=== PATIENT | male | born 1960 | race Caucasian/White ===

== ENCOUNTER → 2022-03-01 10:01 | Outpatient (BNVA) | payer MEDICARE, SELFPAY | PROVIDERS: PCP Family Medicine; Visit Provider Internal Medicine Pulmonary Disease | DX: R91.1 Solitary pulmonary nodule (principal); Z87.891 Personal history of nicotine dependence; Z86.718 Personal history of other venous thrombosis and embolism; Z86.711 Personal history of pulmonary embolism; Z79.01 Long term (current) use of anticoagulants | CPT/HCPCS: 99204 ==

== ENCOUNTER 2022-06-27 09:08 | Outpatient (CLI) | payer MEDICARE, MEDICAID, SELFPAY ==
--- NOTE | 2022-06-27 09:30 | CT_ITS ---
WS: [id number] CT CHEST TECHNIQUE: Noncontrast CT of the chest with coronal and sagittal reformatted images. CLINICAL INFORMATION: F/U Pulm nod COMPARISON: None. DLP: 779.[address] scans at [facility] use at least one of these dose optimization techniques: automated e xposure control; mA and/or kV adjustment per patient size (includes targeted exams where dose is matc hed to clinical indication); or iterative reconstruction. FINDINGS: No prior studies. No comparisons available. Slightly spiculated subpleural nodule RIGHT low er lobe with mainly fat attenuation measuring 2.1 CM. No acute pulmonary infiltrates. No focal pneumo anastacio or pleural fluid. Normal thyroid gland. Normal caliber thoracic aorta. Coronary calcification. No mediastinal or hilar lymphadenopathy. Tiny noncalcified subpleural nodule measuring 5 mm RIGHT middl e lobe Adrenal glands are normal. Noncontrast pancreas is normal. Cholelithiasis. Tiny esophageal hiatal her anastacio. Diffuse fatty infiltration liver. Hypertrophic changes thoracic spine. Disc osteophyte complexes lower thoracic spine. . CT/CT chest wo con [id number] IMPRESSION: 1. 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 2. 6 mm nodule RIGHT middle lobe. 3. No mediastinal or hilar lymphadenopathy. 4. Cholelithiasis.
== END 2022-06-27 09:09 | disposition home or self-care (01) ==
PROVIDERS: PCP Family Medicine; Visit Provider Internal Medicine Pulmonary Disease
DX: R91.1 Solitary pulmonary nodule (principal); K80.20 Calculus of gallbladder without cholecystitis without obstruction
CPT/HCPCS: 71250

== ENCOUNTER → 2023-02-01 15:01 | Outpatient (BNVA) | payer MEDICARE, SELFPAY | PROVIDERS: PCP Family Medicine; Visit Provider Orthopaedic Surgery | DX: M51.26 Other intervertebral disc displacement, lumbar region (principal); M48.061 Spinal stenosis, lumbar region without neurogenic claudication | CPT/HCPCS: 36415; 72110; 80053; 85025; 99204 ==

== ENCOUNTER 2023-02-16 10:56 | Observation (INO) | payer MEDICARE, SELFPAY ==
[2023-02-16] VITALS (13 sets, daily range): BP systolic 127–142; BP diastolic 82–97; PULSE 76–127; RESP 16–20; TEMP 36.5–36.9; O2SAT 96–98; BMI 47.5
--- NOTE | 2023-02-16 11:03 | ECG_ITS ---
[facility] Test Date: 2023-02-16 Pat Name: Carter Garcia Department: Room: 111 Gender: Male [employer] Quality Control Technician: : 1960 Requested By: Montrell Modi Order Number: [id number] Kieran MD: Kathie Kelly M.D. Measurements Intervals [place] Rate: 132 P: 0 VA: 0 QRS: 264 QRSD: 142 T: -1 QT: 319 QTc: 473 Interpretive Statements ATRIAL FIBRILLATION WITH RAPID VENTRICULAR RESPONSE INDETERMINATE AXIS RIGHT BUNDLE BRANCH BLOCK [120+ ms QRS DURATION, UPRIGHT V1, 40+ ms S IN I/aVL/V4/V5/V6] No previous ECG available for comparison Electronically Signed On 02-16-2023 16:26:17 CDT by Kathie Kelly M.D. [id number]
--- NOTE | 2023-02-16 11:08 | XR_ITS ---
WS: [id number] Exam: XR chest 1V portable [id number] Date/Time of Exam: 02/16/2023 11:10 AM Reason For Exam: dyspnea/cough No priors. The lungs are clear and fully expanded. Heart size top limits normal. No pleural effusions. The media stinum is normal in contour for technique. Bony structures are unremarkable. IMPRESSION: 1. No acute cardiopulmonary process.
--- NOTE | 2023-02-16 11:21 | W.ED.ARRPALP ---
HPI - Arrhythmia/Palpitations General: Chief Complaint: Arrhythmia/Palpitations Stated Complaint: was send over for afib Time Seen by Provider: 02/16/23 11:05 Source: patient Mode of arrival: ambulatory History of Present Illness: 62-year-old male presents to the emergency room with complaint of rapid heart rate. He was seen today for preop noted to be tachycardic and directed to the emergency room. He said a problem with back pain and leg weakness related to his chronic back problem for which she is scheduled for surgery but has not had any orthopnea or chest pain no PND not previously been diagnosed with any known coronary artery disease or arrhythmias. He is on warfarin for previous DVT and PE. MD complaint: rapid heart beat and heart racing Severity: mild Context: occurred during rest Associated symptoms: Reports no associated symptoms and other; Deny anxiety, cough, diaphoresis, muscle cramps, nausea, paresthesias, pre-syncope, sense of impending doom, short of breath, syncope or vomiting Review of Systems Const: Denies: diaphoresis Card: Denies: syncope or pre-syncope Resp: Denies: dyspnea GI: Denies: nausea or vomiting : Denies: dysuria, urinary frequency or urinary urgency Musc: Denies: muscle cramps Skin/Breast: Denies: rash Psych: Denies: anxiety PFSH ED PFSH: Medical History 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 Chronic pulmonary embolism Social History Smoking and tobacco/nicotine status: former use of tobacco/nicotine Quit status (tobacco/nicotine): has quit using Year quit tobacco: 2000 Former quit date comment: 1 ppd X 5 years Physical Exam Const: GENERAL APPEARANCE: cooperative and comfortable ORIENTATION/CONSCIOUSNESS: Yes awake, Yes oriented to person, Yes oriented to place and Yes oriented to time HENMT: COMMON NORMALS: normocephalic, atraumatic and hearing grossly normal bilaterally HEAD & SCALP: normocephalic and atraumatic Resp: COMMON NORMALS: normal respiratory effort, No retractions, No use of accessory muscles and clear to auscultation bilaterally AUSCULTATION: clear to auscultation bilaterally Cardio: COMMON NORMALS: No murmurs present (Cardio) RATE: tachycardic RHYTHM: abnormal rhythm irregularly irregular GI: COMMON NORMALS: Soft to palpation and No hepatosplenomegaly present AUSCULTATION: Yes normoactive bowel sounds PALPATION: Yes Soft to palpation, No Tenderness to palpation present (GI), No Guarding due to palpation present (GI) and Yes No hepatosplenomegaly present Extremity: COMMON NORMALS: normal to inspection, capillary refill normal, no clubbing, cyanosis or edema, no calf tenderness and no pedal edema Neuro: SENSORIUM/ORIENTATION: Yes oriented to person, Yes oriented to place and Yes oriented to time Skin: COMMON NORMALS: no rashes or lesions noted GENERAL SKIN EXAM: no rashes or lesions noted Course Vital Signs: Vital signs: Vital Signs Temperature 98.1 F 02/16/23 11:04 Pulse Rate 102 H 02/16/23 13:58 Respiratory Rate 20 H 02/16/23 13:58 Blood Pressure 142/95 02/16/23 13:58 Pulse Oximetry 98 02/16/23 13:58 Oxygen Delivery Me thod Room Air 02/16/23 11:39 MDM - Arrhythmia/Palpitations Medical Decision Making New onset atrial fibrillation. Rate now controlled. New onset A-fib he had warfarin listed on his medicine list when he first came in however that was for DVT PE and he was taken off of it a few months ago. We did give him a oral dose of Cardizem he is on a low-dose of IV Cardizem now at 5 and his rate is relatively well controlled will admit for new onset A-fib further evaluation initiation of oral rate control and anticoagulation as indicated discussed with hospitalist orders written Medical Records I reviewed the patient's medical records. Lab Data I reviewed the patient's lab results. 02/16/23 11:18 02/16/23 11:38 Laboratory Results WBC 9.46 10^3/uL (3.29-11.43) 02/16/23 11:18 RBC 5.57 10^6/uL (3.85-5.65) 02/16/23 11:18 Hgb 16.90 g/dL (11.27-16.99) 02/16/23 11:18 Hct 51.3 % (37-53) 02/16/23 11:18 MCV 92.1 fl (82-101) 02/16/23 11:18 MCH 30.3 pg (27-33) 02/16/23 11:18 MCHC 32.9 g/dL (30-55) 02/16/23 11:18 RDW 14.2 % (12.1-15.1) 02/16/23 11:18 Plt Count 136 10^3/cmm (157-399) L 02/16/23 11:18 MPV 9.6 fL (7.4-10.4) 02/16/23 11:18 Neut % (Auto) 69.2 % 02/16/23 11:18 Lymph % (Auto) 20.9 % 02/16/23 11:18 [place] % (Auto) 6.2 % 02/16/23 11:18 Eos % (Auto) 2.3 % 02/16/23 11:18 Baso % (Auto) 0.8 % 02/16/23 11:18 Neut # (Auto) 6.53 10^3/uL (1.8-7.7) 02/16/23 11:18 Lymph # (Auto) 2.0 10^3/uL (0.8-4.8) 02/16/23 11:18 [place] # (Auto) 0.6 10^3/uL (0.2-0.9) 02/16/23 11:18 Eos # (Auto) 0.2 10^3/uL (0.0-0.8) 02/16/23 11:18 Baso # (Auto) 0.1 10^3/uL (0.0-0.1) 02/16/23 11:18 Nucleated RBC % (auto) 0 % 02/16/23 11:18 Nucleated RBCs # 0.0 /100WBC 02/16/23 11:18 PT 13.40 SECONDS (12.1-14.9) 02/16/23 11:38 INR 0.99 (0.8-1.2) 02/16/23 11:38 APTT 27.6 SECONDS (23.9-36.7) 02/16/23 11:38 Sodium 135 mmol/L (136-145) L 02/16/23 11:38 Potassium 4.0 mmol/L (3.5-5.1) 02/16/23 11:38 Chloride 100 mmol/L (98-107) 02/16/23 11:38 Carbon Dioxide 20 mmol/L (22-29) L 02/16/23 11:38 Anion Gap 19.0 (5-19) 02/16/23 11:38 BUN 14 mg/dL (8-23) 02/16/23 11:38 Creatinine 0.9 mg/dL (0.7-1.2) 02/16/23 11:38 GFR Calculation 85.2 mL/min (90-130) L 02/16/23 11:38 Glucose 289 mg/dL (65-115) H 02/16/23 11:38 Calculated Osmolality 291 mOsm/kg (285-295) 02/16/23 11:38 Calcium 9.6 mg/dL (8.5-10.5) 02/16/23 11:38 Total Bilirubin 0.4 mg/dL (0.15-1.2) 02/16/23 11:38 AST 34 U/L (0-40) 02/16/23 11:38 ALT 21 U/L (0-41) 02/16/23 11:38 Alkaline Phosphatase 81 U/L (40-130) 02/16/23 11:38 Troponin T Baseline 8 ng/L (0-15) 02/16/23 11:38 Total Protein 6.5 g/dL (6.6-8.7) L 02/16/23 11:38 Albumin 4.2 g/dL (3.5-5.2) 02/16/23 11:38 Globulin 2.3 g/dL (1.3-4.6) 02/16/23 11:38 All radiology interpretation(s) finalized by discharge Discharge Plan Discharge Patient Disposition: Admitted As Inpatient Admit Provider: Rishi Buckley Clinical Impression: Atrial fibrillation Condition: Stable Coding Level of Care Code ED Sap Functional Analyst for Mel Montana
[2023-02-16] MEDS: dilTIAZem 5 mg/mL SDV 5 mL 20 MG IVP (11:27)
[2023-02-16 11:38] LABS: Basophils # 0.1 10^3/uL (0.0-0.1); Basophils % 0.8 %; Eosinophils # 0.2 10^3/uL (0.0-0.8); Eosinophils % 2.3 %; Hematocrit 51.3 % (37-53); Lymphocytes % 20.9 %; Mean Corpuscular HGB Conc 32.9 g/dL (30-55); Mean Corpuscular Hemoglobin 30.3 pg (27-33); Mean Corpuscular Volume 92.1 fl (82-101); Mean Platelet Volume 9.6 fL (7.4-10.4); Monocytes # 0.6 10^3/uL (0.2-0.9); Monocytes % 6.2 %; Neutrophils # 6.53 10^3/uL (1.8-7.7); Neutrophils % 69.2 %; Nucleated Red Blood Cells % 0 %; Platelet Count 136 10^3/cmm (157-399); Red Blood Count 5.57 10^6/uL (3.85-5.65); Red Cell Distribution Width 14.2 % (12.1-15.1); White Blood Count 9.46 10^3/uL (3.29-11.43)
[2023-02-16] MEDS: dilTIAZem 100 MG in sodium chloride 0.9% (add-van) 100 ML IV (11:41)
[2023-02-16 12:04] LABS: INR 0.99 (0.8-1.2)
[2023-02-16 12:05] LABS: Partial Thromboplastin Time 27.6 SECONDS (23.9-36.7)
[2023-02-16 12:08] LABS: Alanine Aminotransferase 21 U/L (0-41); Albumin Level 4.2 g/dL (3.5-5.2); Alkaline Phosphatase 81 U/L (40-130); Aspartate Amino Transferase 34 U/L (0-40); Blood Urea Nitrogen 14 mg/dL (8-23); Calcium 9.6 mg/dL (8.5-10.5); Carbon Dioxide 20 mmol/L (22-29); Chloride 100 mmol/L (98-107); Globulin 2.3 g/dL (1.3-4.6); Glomerular Filtration Rate 85.2 mL/min (90-130); Glucose 289 mg/dL (65-115); Osmolality Calculated 291 mOsm/kg (285-295); Sodium 135 mmol/L (136-145); Total Bilirubin 0.4 mg/dL (0.15-1.2); Total Protein 6.5 g/dL (6.6-8.7)
[2023-02-16 12:10] LABS: Troponin(5th) Baseline 8 ng/L (0-15)
--- NOTE | 2023-02-16 13:08 | ECG_ITS ---
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 Measurements Intervals [place] Rate: 100 P: 0 LA: 0 QRS: -27 QRSD: 135 T: -12 QT: 340 QTc: 440 Interpretive Statements ATRIAL FIBRILLATION WITH RAPID VENTRICULAR RESPONSE INDETERMINATE AXIS RIGHT BUNDLE BRANCH BLOCK [120+ ms QRS DURATION, UPRIGHT V1, 40+ ms S IN I/aVL/V4/V5/V6] POSSIBLE ANTERIOR MYOCARDIAL INFARCTION , OF INDETERMINATE AGE [30 ms Q WAVE IN V3/V4, OR R < 0.2 mV IN V4] Compared to ECG 02/16/2023 11:03:23 Myocardial infarct finding now present Electronically Signed On 02-16-2023 16:27:59 CDT by Kathie Kelly M.D. [id number]
[2023-02-16] MEDS: dilTIAZem 60 mg Tablet PO (13:19)
--- NOTE | 2023-02-16 13:37 | PC.NURSE ---
Called report to Luis.
[2023-02-16 15:02] LABS: Troponin 5 2HR 7.11 ng/L (0-15); Troponin 5 2HR Delta -0.89 ABS# (0-10)
--- NOTE | 2023-02-16 15:19 | USCV_ITS ---
Carter Garcia Age: 62 Gender: M : 1960 Exam Date: 02/16/2023 17:15 Ordering Phys: Rishi Buckley DO Technologist: Moshe Estrada Exam Location: [facility] [place] Indication: AFIB BP: 142 / 95 HR: 84 Rhythm: Sinus Technical Quality: Adequate MEASUREMENTS (Male / Female) Normal Values 2D ECHO LVOT Diameter 2.1 cm LV Ejection Fraction MOD 2C 68.0 % LV Ejection Fraction 2C AL 67.0 % LA Diameter 3.2 cm LA Width 3.4 cm LA Height 5.1 cm RA Width 4.3 cm RA Height 5.9 cm Aorta at Sinotubular Diameter 2.8 cm M-MODE Aortic Annulus Diameter 2.9 cm LA Ao Ratio MM 1.1 MV E Point Septal Separation 0.5 cm DOPPLER AV Peak Velocity 130.0 cm/s LVOT Peak Velocity 83.0 cm/s AV Area Cont Eq vti 3.0 cm squared AV Area Cont Eq pk 2.2 cm squared MV Peak Velocity 117.0 cm/s MV Area PHT 3.7 cm squared Mitral E to A Ratio 3.0 MV E' Velocity 49.5 cm/s Mitral E to MV E' Ratio 7.8 Mitral E to LV E' Lateral Ratio 7.2 Mitral E to LV E' Septal Ratio 8.5 TR Peak Velocity 191.1 cm/s TR Peak Gradient 14.6 mmHg TR Mean Velocity 147.9 cm/s TR Mean Gradient 9.4 mmHg TR Velocity Time Integral 44.1 cm Right Atrial Pressure 8.0 mmHg Pulmonary Artery Systolic Pressu 22.6 mmHg PV Peak Velocity 79.0 cm/s RV Acceleration Time 0.1 s RV Ejection Time 0.2 s RV AcT/ET 0.4 FINDINGS Left Ventricle Left ventricle is normal in size. LV systolic function is normal with EF of 55 to 60%. No regional wall motion abnormalities are seen. Right Ventricle Normal in size and function Right Atrium Normal in size Left Atrium Normal in size Mitral Valve Structurally normal mitral valve. Mild mitral regurgitation. Aortic Valve Structurally normal aortic valve. No significant stenosis or regurgitaiton. Tricuspid Valve Mild tricuspid regurgitation. Pulmonary artery systolic pressure is normal Pulmonic Valve Not well visualized Pericardium Normal Aorta Normal in size IVC Not well visualized CONCLUSIONS LV systolic function is normal with EF of 55-60% Mild mitral regurgitation Mild tricuspid regurgitation No comparison studies are available. Long Omalley MD (Electronically Signed) Final Date: 17 February 2023 10:35 S
--- NOTE | 2023-02-16 16:08 | ECG_ITS ---
[facility] Test Date: 2023-02-16 Pat Name: Carter Garcia Department: Room: 111 Gender: Male [employer] Department Supervisor: : 1960 Requested By: Montrell Modi Order Number: [id number] Kieran MD: Kathie Kelly M.D. Measurements Intervals [place] Rate: 66 P: 0 [place]: 0 QRS: -31 QRSD: 142 T: -1 QT: 405 QTc: 424 Interpretive Statements ATRIAL FIBRILLATION INDETERMINATE AXIS RIGHT BUNDLE BRANCH BLOCK [120+ ms QRS DURATION, UPRIGHT V1, 40+ ms S IN I/aVL/V4/V5/V6] Compared to ECG 02/16/2023 13:12:00 Myocardial infarct finding no longer present Electronically Signed On 02-16-2023 16:27:44 CDT by Kathie Kelly M.D. [id number]
--- NOTE | 2023-02-16 16:12 | P.HP_ITS ---
Providers/Chief Complaint Admitting Physician: Rishi Buckley DO Primary Care Provider: Jonathan Gould Chief Complaint: was send over for afib History of Present Illness Carter Garcia is a 62 year old male presented for preop today and noticed to be tachycardic and he was directed to the emergency room. He says he has problems with back pain and leg weakness and injured his back a few months prior. He was scheduled for surgery February 23 he denies any chest pain palpitations orthopnea or PND. He was on warfarin for previous DVT and PE but he has been off of that for a few months now. Declines complaints for me except his chronic back pain and asking for more hydrocodone. He says his doctor only prescribe someone of a 5 mg hydrocodone tablet but he takes 2 Review of Systems Const: Denies: fever(s) or chills Eyes: Denies: change in vision ENMT: Denies: throat pain or nasal congestion Card: Denies: chest pain or palpitations Resp: Denies: dyspnea or productive cough GI: Denies: abdominal pain, nausea, vomiting or change in stool character : Denies: difficulty urinating or dysuria Musc: Reports: back pain; Denies: extremity pain Skin/Breast: Denies: rash or lesions Neuro: Denies: headache(s) or dizziness Psych: Denies: anxiety or depression Ruben/Lymph: Denies: easy bruising or easy bleeding Medications/Allergies Home Medications Medication Instructions Recorded Confirmed Last Taken Type amlodipine 10 mg tablet 10 mg PO QPM 03/01/22 02/16/23 02/15/23 History glimepiride 4 mg tablet 4 mg PO QPM 03/01/22 02/16/23 02/15/23 History hydrocodone 5 mg-acetaminophen 325 2 tab PO Q6H PRN Pain 03/01/22 02/16/23 02/15/23 History mg tablet metformin 1,000 mg tablet 1,000 mg PO BID 03/01/22 02/16/23 02/16/23 History multivitamin 1 tab PO DAILY 03/01/22 02/16/23 1 Week Ago History ~02/09/23 pravastatin 20 mg tablet 20 mg PO QPM 03/01/22 02/16/23 02/15/23 History lisinopril 40 mg tablet 40 mg PO QPM 02/16/23 02/16/23 02/15/23 History terbinafine HCl 1 % topical cream 1 applic topical BID PRN FUNGAL 02/16/23 02/16/23 Unknown History (Lamisil AT) tizanidine 2 mg tablet 2 mg PO QID PRN Spasms 02/16/23 02/16/23 Unknown History Allergies Allergy/AdvReac Type Severity Reaction Status Date / Time poison allyn extract Allergy ALGY-Rash Verified 02/16/23 11:09 poison oak extract Allergy ALGY-Rash Verified 02/16/23 11:09 poison sumac extract Allergy ALGY-Rash Verified 02/16/23 11:09 PFSH Acute PFSH: Medical History (Updated 02/16/23 @ 16:24 by Rishi Buckley DO) 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 Chronic pulmonary embolism Hyperlipidemia Hypertension Morbid obesity Type 2 diabetes mellitus Social History Smoking and tobacco/nicotine status: former use of tobacco/nicotine Quit status (tobacco/nicotine): has quit using Year quit tobacco: 2000 Former quit date comment: 1 ppd X 5 years Vitals/I&O/Wt Last Vital Signs Temp 98.1 F 02/16/23 11:04 Pulse 102 H 02/16/23 13:58 Resp 20 H 02/16/23 13:58 BP 142/95 02/16/23 13:58 Pulse Ox 98 02/16/23 13:58 O2 Del Method Room Air 02/16/23 11:39 Weight last 48 hrs Weight 158.757 kg Physical Exam Narrative: Pleasant morbidly obese white male in no acute distress at time of exam Neurologic: Alert and oriented x4, cranial nerves II through XII are grossly intact, motor and sensory is nonfocal HEENT head is normocephalic atraumatic patient has facial hair. P PERRLALOIS CHARLY. No scleral icterus mucous membranes are moist and pink without lesions or exudates neck is supple no JVD carotid bruits or lymphadenopathy Chest rises symmetrically with inspiration Heart is irregular rhythm but rate is less than 100 Lungs clear to auscultation without wheezes rales or rhonchi Abdomen obese otherwise nontender nondistended positive bowel sounds Extremities right lower extremity larger than left. 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 Patient is placed on IV Cardizem drip: After a bolus lowered heart rate. Once on floor restarted Cardizem short acting. Patient's heart rate is in the 70s and 80s. Started Eliquis. Plan for Cardizem CD 180 mg tomorrow morning Ordered an echo however patient's body habitus will prevent an adequate read. Hopefully we can get an idea of LV function Chronic pain secondary to back pain and unable to proceed with surgery. Patient will probably have to wait least over a month of anticoagulation before stopping and perhaps even up to 6 months. We will start adjuvant therapy for pain * Cymbalta 30 mg * Lyrica 150 mg bolus now and 75 mg twice daily * Celebrex 400 mg now then 200 mg p.o. 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
[2023-02-16] MEDS: HYDROcodone-acetaminophen 5-325 mg Tablet 2 TAB PO ×2 (16:15→22:14)
[2023-02-16] MEDS: dilTIAZem 30 mg Tablet PO ×2 (16:16→20:37)
[2023-02-16 17:07] LABS: Add Urine Microscopic? NO; Charge for UA Resulting for Rev
[2023-02-16 17:14] LABS: Bilirubin Urine Neg (Negative); Blood Urine Neg (Negative); Glucose Urine UA 2+ (Normal); Ketones Urine 1+ (Negative); Leukocyte Esterase Urine Negative (Negative); Nitrate Urine Negative (Negative); Protein Urine Neg (Negative); Specific Gravity, Urine 1.015 (1.005-1.030); Urine Appearance Clear (CLEAR); Urine Color Yellow (Yellow); Urobilinogen Urine Norm (Negative); pH Urine 5 (5-7)
[2023-02-16 17:17] LABS: Glucose Point of Care 217 mg/dL (70-110)
[2023-02-16] MEDS: metformin 500 mg Tablet 1000 MG PO (17:46)
[2023-02-16] MEDS: amlodipine 10 mg Tablet PO (17:47)
[2023-02-16] MEDS: glimepiride 2 mg Tablet 4 MG PO (17:47)
[2023-02-16] MEDS: lisinopril 20 mg Tablet PO (17:47)
[2023-02-16] MEDS: atorvastatin 40 mg Tablet 20 MG PO (17:47)
[2023-02-16] MEDS: perflutren protein-a microsphr 0.22 mg/mL SDV 3 mL IV (17:57)
[2023-02-16 18:31] LABS: Troponin 5 6HR 8.64 ng/L (0-15); Troponin 5 6HR Delta 0.64 ng/L (0-12)
[2023-02-16] MEDS: apixaban 5 mg Tablet PO (20:37)
[2023-02-17] VITALS: BP 131/96; PULSE 77; RESP 16; TEMP 36.9; O2SAT 97
[2023-02-17] MEDS: dilTIAZem 30 mg Tablet PO ×2 (03:58→08:18)
[2023-02-17 04:00] VITALS: BP 144/94; PULSE 76; RESP 18; TEMP 36.5; O2SAT 97
[2023-02-17] MEDS: HYDROcodone-acetaminophen 5-325 mg Tablet 2 TAB PO ×2 (04:41→10:00)
[2023-02-17 05:26] LABS: Blood Urea Nitrogen 14 mg/dL (8-23); Calcium 9.1 mg/dL (8.5-10.5); Carbon Dioxide 22 mmol/L (22-29); Chloride 103 mmol/L (98-107); Glomerular Filtration Rate 97.6 mL/min (90-130); Glucose 167 mg/dL (65-115); Magnesium 1.6 mg/dL (1.7-2.3); Osmolality Calculated 286 mOsm/kg (285-295); Sodium 136 mmol/L (136-145)
[2023-02-17 05:48] VITALS: PULSE 83
[2023-02-17 07:43] VITALS: BP 107/71; PULSE 88; RESP 22; O2SAT 94
[2023-02-17] MEDS: apixaban 5 mg Tablet PO (08:17)
[2023-02-17] MEDS: dilTIAZem ER (24HR) 180 mg Capsule PO (08:17)
[2023-02-17] MEDS: magnesium sulfate premix 2 GM/50 ML PIGGYBACK IV (08:18)
[2023-02-17] MEDS: multivitamin therapeutic Tablet 1 TAB PO (08:18)
[2023-02-17] MEDS: metformin 500 mg Tablet 1000 MG PO (08:18)
--- NOTE | 2023-02-17 09:24 | P.DS_ITS ---
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 He says he has problems with back pain and leg weakness and injured his back a few months prior.? He was scheduled for surgery February 23 he denies any chest pain palpitations orthopnea or PND.? He was on warfarin for previous DVT and PE but he has been off of that for a few months now. Declines complaints for me except his chronic back pain and asking for more hydrocodone.? He says his doctor only prescribe someone of a 5 mg hydrocodone tablet but he takes 2 Hospital Course Hospital Course Patient responded well to IV bolus of Cardizem. He was placed on a 5 mg Cardizem drip. He remained in A-fib overnight with rate control of approximately 6 heart rate of 70-80. He was able to be taken off the drip in the overhead foreman hours and placed on a long-acting Cardizem. His heart rate and blood pressure are within normal limits. Unfortunately, we discussed that patient is unable to have surgery for sure within the next month and I would defer to cardiology about back surgery in the future. Given that its not an urgency I would assume we need to postpone for at least 6 months. Instead I prescribed adjunvant pain management. He has been started on Cymbalta 30 mg daily and Lyrica 75 mg twice daily. I ordered outpatient physical therapy. We had a long discussion about weight loss. He noted that he has gained 20 pounds since his injury which of course is making his pain worse. I strongly encouraged him to change his diet. His next excuse was that he does not have any teeth. I ordered a dietitian outpatient to help with weight loss and blood sugar control. Physical Exam Narrative: Pleasant morbidly obese white male in no acute distress at time of exam Heart is irregular rhythm with rates in the 70s and 80s. Lungs clear to auscultation without wheezes rales or rhonchi Abdomen morbidly obese otherwise nontender nondistended positive bowel sounds Extremities right lower extremity larger than left. It is partly edematous but nonpitting Discharge Data Studies Completed and Pending Completed Studies During Hospitalization Category Date Time Status XR chest 1V portable [id number] Stat Exams 02/16/23 11:08 Completed Pending at discharge Category Date Time Status CV. echo complete* [id number] Routine Ultrasound 02/16/23 15:19 Taken Laboratory Results WBC 9.46 10^3/uL (3.29-11.43) 02/16/23 11:18 RBC 5.57 10^6/uL (3.85-5.65) 02/16/23 11:18 Hgb 16.90 g/dL (11.27-16.99) 02/16/23 11:18 Hct 51.3 % (37-53) 02/16/23 11:18 MCV 92.1 fl (82-101) 02/16/23 11:18 MCH 30.3 pg (27-33) 02/16/23 11:18 MCHC 32.9 g/dL (30-55) 02/16/23 11:18 RDW 14.2 % (12.1-15.1) 02/16/23 11:18 Plt Count 136 10^3/cmm (157-399) L 02/16/23 11:18 MPV 9.6 fL (7.4-10.4) 02/16/23 11:18 Neut % (Auto) 69.2 % 02/16/23 11:18 Lymph % (Auto) 20.9 % 02/16/23 11:18 [place] % (Auto) 6.2 % 02/16/23 11:18 Eos % (Auto) 2.3 % 02/16/23 11:18 Baso % (Auto) 0.8 % 02/16/23 11:18 Neut # (Auto) 6.53 10^3/uL (1.8-7.7) 02/16/23 11:18 Lymph # (Auto) 2.0 10^3/uL (0.8-4.8) 02/16/23 11:18 [place] # (Auto) 0.6 10^3/uL (0.2-0.9) 02/16/23 11:18 Eos # (Auto) 0.2 10^3/uL (0.0-0.8) 02/16/23 11:18 Baso # (Auto) 0.1 10^3/uL (0.0-0.1) 02/16/23 11:18 Nucleated RBC % (auto) 0 % 02/16/23 11:18 Nucleated RBCs # 0.0 /100WBC 02/16/23 11:18 PT 13.40 SECONDS (12.1-14.9) 02/16/23 11:38 INR 0.99 (0.8-1.2) 02/16/23 11:38 APTT 27.6 SECONDS (23.9-36.7) 02/16/23 11:38 Sodium 136 mmol/L (136-145) 02/17/23 04:37 Potassium 4.0 mmol/L (3.5-5.1) 02/17/23 04:37 Chloride 103 mmol/L (98-107) 02/17/23 04:37 Carbon Dioxide 22 mmol/L (22-29) 02/17/23 04:37 Anion Gap 15.0 (5-19) 02/17/23 04:37 BUN 14 mg/dL (8-23) 02/17/23 04:37 Creatinine 0.8 mg/dL (0.7-1.2) 02/17/23 04:37 GFR Calculation 97.6 mL/min (90-130) 02/17/23 04:37 Glucose 167 mg/dL (65-115) H 02/17/23 04:37 POC Glucose 217 mg/dL (70-110) H 02/16/23 16:54 Calculated Osmolality 286 mOsm/kg (285-295) 02/17/23 04:37 Calcium 9.1 mg/dL (8.5-10.5) 02/17/23 04:37 Magnesium 1.6 mg/dL (1.7-2.3) L 02/17/23 04:37 Total Bilirubin 0.4 mg/dL (0.15-1.2) 02/16/23 11:38 AST 34 U/L (0-40) 02/16/23 11:38 ALT 21 U/L (0-41) 02/16/23 11:38 Alkaline Phosphatase 81 U/L (40-130) 02/16/23 11:38 Troponin T Baseline 8 ng/L (0-15) 02/16/23 11:38 Troponin T 120 Minute 7.11 ng/L (0-15) 02/16/23 14:05 Delta Troponin T -0.89 ABS# (0-10) L 02/16/23 14:05 Troponin T Hi Sens 6Hr 8.64 ng/L (0-15) 02/16/23 17:50 Troponin T Hi Sens 6Hr Delta 0.64 ng/L (0-12) 02/16/23 17:50 Total Protein 6.5 g/dL (6.6-8.7) L 02/16/23 11:38 Albumin 4.2 g/dL (3.5-5.2) 02/16/23 11:38 Globulin 2.3 g/dL (1.3-4.6) 02/16/23 11:38 Urine Color Yellow (Yellow) 02/16/23 16:48 Urine Appearance Clear (CLEAR) 02/16/23 16:48 Urine pH 5 (5-7) 02/16/23 16:48 Ur Specific [place] 1.015 (1.005-1.030) 02/16/23 16:48 Urine Protein Neg (Negative) 02/16/23 16:48 Urine Glucose (UA) 2+ (Normal) H 02/16/23 16:48 Urine Ketones 1+ (Negative) H 02/16/23 16:48 Urine Blood Neg (Negative) 02/16/23 16:48 Urine Nitrate Negative (Negative) 02/16/23 16:48 Urine Bilirubin Neg (Negative) 02/16/23 16:48 Urine Urobilinogen Norm mg/dL (Negative) 02/16/23 16:48 Ur Leukocyte Esterase Negative (Negative) 02/16/23 16:48 Vitals Last Vital Signs Temp 97.7 F 02/17/23 04:00 Pulse 88 02/17/23 07:43 Resp 22 H 02/17/23 07:43 BP 107/71 02/17/23 07:43 Pulse Ox 94 02/17/23 07:43 O2 Del Method High Flow Nasal Cannula 02/17/23 07:43 FiO2 21 02/16/23 22:02 Discharge Plan Discharge Patient Disposition: Home Condition: Stable Prescriptions: New pregabalin [Lyrica] 75 mg capsule 75 mg PO BID Qty: 60 0RF diltiazem HCl [DILT-XR] 180 mg Capsule,Ext.Rel 24h Degradable 180 mg PO DAILY Qty: 30 0RF Eliquis 5 mg Tablet 5 mg PO BID@0900,2100 Qty: 60 0RF lisinopril 20 mg Tablet 20 mg PO QPM Qty: 30 0RF duloxetine [Cymbalta] 30 mg capsule,delayed release(DR/EC) 30 mg PO DAILY Qty: 30 0RF lidocaine [Lidoderm] 5 % adhesive patch,medicated 1 patch topical DAILY Qty: 30 0RF Rx Instructions: leave on most painful area for up to 12 hrs Continued amlodipine 10 mg tablet 10 mg PO QPM pravastatin 20 mg tablet 20 mg PO QPM glimepiride 4 mg tablet 4 mg PO QPM hydrocodone-acetaminophen 5-325 mg tablet 2 tab PO Q6H PRN (Reason: Pain) metformin 1,000 mg tablet 1,000 mg PO BID multivitamin Tablet 1 tab PO DAILY Lamisil AT 1 % cream 1 applic TOPICAL BID PRN (Reason: FUNGAL) tizanidine 2 mg tablet 2 mg PO QID PRN (Reason: Spasms) Discontinued lisinopril 40 mg tablet 40 mg PO QPM Discharge Orders: Discharge Order (Routine); Ordered 02/17/23 Ordered By: Rishi Buckley Other Ambulatory Orders: Request OP Dietitian Consult (Routine) Timeframe: 1 Week Location: Determined by Patient Ordered By: Rishi Buckley Physical Therapy Eval and Treat Outpatient (Order) Timeframe: 1 Week Facility: [facility] - Location: Physical Therapy Ordered By: Rishi Buckley Referrals: Jonathan Gould [Primary Care Provider] - (Please call Jonathan Gould's Office at [phone] on Sunday to schedule a follow up appointment. Thank you.) Discharge Diet: Diabetic Discharge Activity: Increase activity as tolerated Patient Instructions: Diltiazem (By mouth) (Cardizem, Cardizem CD, Cardizem LA, Cardizem SR), Lisinopril (By mouth) (Prinivil, Zestril), Lidocaine Patch (On the skin) (Lidoderm, Novaplus Lidocaine), Duloxetine (By mouth) (Cymbalta, Irenka, Drizalma Sprinkle), Pregabalin (By mouth) (Lyrica, Lyrica CR), Apixaban (By mouth) (Eliquis), A-fib (Atrial Fibrillation) (DC), Diabetes and Nutrition (DC), Opioid Safety Discharge Attestations Time Spent in Discharge Care*: less than 30 min Quality Metrics Clinical Quality Measures [ No reported AMI, CVA or VTE this stay] Coding Level of Care Code Acute Code for [facility] Fwd Diagnoses Atrial fibrillation I48.91 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
[2023-02-17 10:47] VITALS: BP 107/71; PULSE 88; RESP 22; O2SAT 94
--- NOTE | 2023-02-17 12:01 | PC.NURSE ---
Discharge Note Patient discharged to [home] via [w/c to POV] accompanied by [HIGHBALLER]. Discharge instructions reviewed with patient and/or outside sales account representative. Mobile pharmacy medications and/or prescriptions provided. Belongings/home medications returned.
== END 2023-02-17 12:01 | disposition home or self-care (01) ==
LOC: ER 11:22 → CSU 12:39
PROVIDERS: Admitting Provider Internal Medicine; Emergency Provider Family Medicine; PCP Family Medicine; Visit Provider Internal Medicine
DX: I48.91 Unspecified atrial fibrillation (principal); M54.40 Lumbago with sciatica, unspecified side; G89.29 Other chronic pain; E78.5 Hyperlipidemia, unspecified; I10 Essential (primary) hypertension; E11.9 Type 2 diabetes mellitus without complications; E66.01 Morbid (severe) obesity due to excess calories; Z68.42 Body mass index [BMI] 45.0-49.9, adult; Z79.01 Long term (current) use of anticoagulants; Z86.718 Personal history of other venous thrombosis and embolism; Z79.84 Long term (current) use of oral hypoglycemic drugs; Z86.711 Personal history of pulmonary embolism; Z87.891 Personal history of nicotine dependence; I45.10 Unspecified right bundle-branch block; I08.1 Rheumatic disorders of both mitral and tricuspid valves
CPT/HCPCS: 36415; 36416; 71045; 80048; 80053; 81000; 81003; 82962; 83036; 83735; 84484; 85025; 85610; 85730; 93005; 93306; 94660; 96365; 96375; 96376; 99285; G0378; J3475; J3490; Q9956

== ENCOUNTER → 2023-02-28 12:23 | Outpatient (BNVA) | payer MEDICARE, SELFPAY | PROVIDERS: PCP Family Medicine; Visit Provider Internal Medicine | DX: I48.91 Unspecified atrial fibrillation (principal); Z79.01 Long term (current) use of anticoagulants; I27.82 Chronic pulmonary embolism; E78.5 Hyperlipidemia, unspecified; I10 Essential (primary) hypertension; E11.9 Type 2 diabetes mellitus without complications; Z79.84 Long term (current) use of oral hypoglycemic drugs; Z87.891 Personal history of nicotine dependence | CPT/HCPCS: 99204 ==

== ENCOUNTER 2023-03-13 09:55 | Outpatient (CLI) | payer MEDICARE, SELFPAY ==
[2023-03-13 10:24] VITALS: BMI 47.5
--- NOTE | 2023-03-13 10:26 | ECG_ITS ---
[facility] Test Date: 2023-03-13 Pat Name: Carter Garcia Department: Room: Gender: Male Vp Of Digital Marketing: Teresita Angelfus : 1960 Requested By: Long Omalley Order Number: [id number] Kieran MD: Joey Finley M.D. Interpretive Statements NAME OF STUDY: LEXISCAN SESTAMIBI STRESS TEST INDICATION: [Chest Pain, ] PROCEDURE: At the baseline, the EKG revealed atrial fibrillation with a controlled ventricular response rate. Right bundle branch block pattern.. The baseline heart was 83 bpm with a blood pressue of 115/68 mm of Hg Lexiscan was infused over a period of 20 seconds. A total of 0.4 milligrams of Lexiscan was infused. The stress phase was continued for a total of 5 minutes. Heart rate at the end of the stress phase was 91 bpm with a blood pressure 166/95 mm of Hg. The EKG at the peak infusion revealed no significant changes. Sestamibi was injected 20 seconds after the Lexiscan infusion. Heart rate at the end of the recovery phase was 90 bpm with a blood pressure of 150/85 mm of Hg. CONCLUSION: 1. No significant EKG changes with the LexiScan infusion 2. No LexiScan induced chest pain or cardiac arrhythmia 3. Normal blood pressure and heart rate response 4. Sestamibi/sestamibi perfusion scan pending; see separate report. Electronically Signed On 03-16-2023 13:26:56 RADIO TALK SHOW HOST by Joey Finley M.D. [id number]
--- NOTE | 2023-03-13 10:27 | NMCV_ITS ---
NM natty perf SPECT r/s* [id number] [address] bill Age: 62 Gender: M : 1960 Exam Date: 03/13/2023 11:05 Ordering Phys: Long Omalley M.D ([email or web address]) Technologist: MELINDA Mcpherson Exam Location: [facility] Indications: Chest pain STRESS TEST Please see separate stress test report in [facility] for full findings IMAGE PROTOCOL Rest/Stress 1 Radiopharmaceutical Dose (mCi) Administration Site Administered by Rest: Tc-99m 11.0 IV MELINDA Mcpherson Sestamibi Stress:Tc-99m 33.0 IV MELINDA Mcpherson Sestamirichy Rest: 13-Mar-2023 60 Discovery 630 Stress: 13-Mar-2023 30 Discovery 630 SPECT RESULTS Technical Quality: Excellent Raw Data Analysis: Normal Image Corrections: No attenuation or motion correction applied Summed Stress Score: 4 Summed Rest Score: 4 Summed Difference Score: 0 PERFUSION FINDINGS Mild to moderate area of minimal to moderately decreased tracer uptake in the mid and apical inferior and mid inferolateral regions. No significant reversibility was noted in these regions. FUNCTIONAL RESULTS (calculated via Gated SPECT) Stress Image LV EF (%): 69 Stress EDV (mL):99 TID: 1.11 Stress ESV (mL):31 FUNCTIONAL FINDINGS: Segmental wall motion analysis revealing no gross wall motion abnormalities IMPRESSIONS 1. Myocardial perfusion imaging revealing a small to moderate area of minimally decreased persistent tracer uptake in the inferior and inferolateral regions, with no significant reversibility. 2. Normal LV ejection fraction of 69%. 3. LV wall motion analysis revealing no gross wall motion abnormalities. 4. Normal LV volume No similar previous studies are available for comparison Dr Joey Finley MD [facility] (Electronically Signed) Final Date: 13 March 2023 14:12 S
[2023-03-13] MEDS: regadenoson 0.4 Mg/5 ml Syringe IVP (11:47)
[2023-03-13 11:56] VITALS: BP 115/85; PULSE 83
== END 2023-03-13 09:56 | disposition home or self-care (01) ==
PROVIDERS: PCP Family Medicine; Visit Provider Internal Medicine
DX: R07.9 Chest pain, unspecified (principal)
CPT/HCPCS: 36415; 78452; 93017; 96374; A9500; J2785

== ENCOUNTER → 2024-04-21 15:17 | Outpatient (BNVA) | payer MEDICARE, MEDICAID, SELFPAY | PROVIDERS: PCP Family Medicine; Referring Provider Family Medicine; Visit Provider Nurse Practitioner Family | DX: L08.9 Local infection of the skin and subcutaneous tissue, unspecified (principal); L30.4 Erythema intertrigo; D69.2 Other nonthrombocytopenic purpura; D18.01 Hemangioma of skin and subcutaneous tissue | CPT/HCPCS: 11104; 99204 ==

== ENCOUNTER → 2024-05-01 14:45 | Outpatient (BNVA) | payer MEDICARE, MEDICAID, SELFPAY | PROVIDERS: PCP Family Medicine; Visit Provider Nurse Practitioner Family | DX: B35.4 Tinea corporis (principal); L92.0 Granuloma annulare; L30.4 Erythema intertrigo | CPT/HCPCS: 99214 ==

== ENCOUNTER → 2024-06-26 15:11 | Outpatient (BNVA) | payer MEDICARE, MEDICAID, SELFPAY | PROVIDERS: PCP Family Medicine; Visit Provider Nurse Practitioner Family | DX: B35.4 Tinea corporis (principal); L92.0 Granuloma annulare; L81.0 Postinflammatory hyperpigmentation; L30.4 Erythema intertrigo | CPT/HCPCS: 99214 ==

== ENCOUNTER → 2024-10-29 15:13 | Outpatient (BNVA) | payer MEDICARE, MEDICAID, SELFPAY | PROVIDERS: PCP Family Medicine; Visit Provider Nurse Practitioner Family | DX: L92.0 Granuloma annulare (principal); L81.0 Postinflammatory hyperpigmentation; B35.1 Tinea unguium | CPT/HCPCS: 99214 ==

== ENCOUNTER → 2025-01-13 16:00 | Outpatient (BNVA) | payer MEDICARE, SELFPAY | PROVIDERS: PCP Family Medicine; Visit Provider Orthopaedic Surgery | DX: M48.061 Spinal stenosis, lumbar region without neurogenic claudication (principal) | CPT/HCPCS: 72110; 99213 ==

== ENCOUNTER 2025-01-29 14:15 | Outpatient (CLI) | payer MEDICARE, SELFPAY ==
--- NOTE | 2025-01-29 14:30 | MR_ITS ---
WS: [id number] MRI LUMBAR SPINE NONCONTRAST HISTORY: Back pain COMPARISON: 01/08/2023 TECHNIQUE: Sagittal and axial multisequence imaging is submitted. Increase in thoracic kyphosis. Small disc osteophyte complexes lower cervical and thoracic spine. No cord compression. Normal lumbar alignment. Small amount of marrow edema in the anterior inferior L1 vertebral body. No acute fractures. Disc spaces and vertebral body heights are well-preserved. Conus terminates normally at L1-2 disc level. T12-L1: Central disc osteophyte. Minimal encroachment upon the thecal sac. No high-grade stenosis. No interval change. L1-L2: Minimal disc bulging. No stenosis. L2-L3: Mild disc bulging and facet arthritis. No stenosis. L3-L4: Mild annular disc bulging with mild ligamentum flavum and facet arthritis. Bilateral broad-based disc protrusions in the foramina causing mild stenosis. There is mild encroachment upon the ventral thecal sac. No high-grade stenosis. L4-L5: Diffuse disc bulging. Moderate size RIGHT subarticular recess disc protrusion contacts the thecal sac and the traversing RIGHT L5 nerve root with displacement. Disc protrusion extends into the proximal foramen. There is lesser contact on the traversing LEFT L5 nerve root. RIGHT foraminal disc osteophyte resulting in moderate to severe RIGHT foraminal stenosis. Minimal LEFT foraminal stenosis. Moderate central and subarticular recess stenosis. L5-S1: Diffuse disc bulging with a broad-based LEFT paracentral and proximal foraminal disc protrusion which has slightly increased in size. There is contact on the LEFT S1 nerve root and mild displacement. Disc protrusion extends into the LEFT foramen. Moderate to severe LEFT foraminal stenosis and mild RIGHT foraminal stenosis. Paravertebral soft tissues are negative. MR/MR lumbar spine wo con* [id number] IMPRESSION: 1. Broad-based large LEFT paracentral and proximal foraminal disc protrusion a t L5-S1 which has slightly increased in size since 01/08/2023. There is signific ant contact on the LEFT L5 and S1 nerve roots. Moderate to severe LEFT foramina l stenosis and mild RIGHT foraminal stenosis. 2. Moderate size RIGHT subarticular recess disc protrusion contacting the thec al sac and traversing RIGHT L5 nerve root. Disc protrusion extends into the pro ximal RIGHT foramen. Moderate to severe RIGHT foraminal stenosis and minimal LE FT foraminal stenosis. Moderate central and bilateral subarticular recess steno sis, RIGHT greater than LEFT. 3. Small bilateral foraminal broad-based disc protrusions at L3-4. No stenosis .
== END 2025-01-29 14:16 | disposition home or self-care (01) ==
LOC: RAD 14:16
PROVIDERS: PCP Family Medicine; Visit Provider Orthopaedic Surgery
DX: M48.061 Spinal stenosis, lumbar region without neurogenic claudication (principal); M51.27 Other intervertebral disc displacement, lumbosacral region; R93.7 Abnormal findings on diagnostic imaging of other parts of musculoskeletal system; M51.26 Other intervertebral disc displacement, lumbar region; M40.294 Other kyphosis, thoracic region; M25.78 Osteophyte, vertebrae; R60.0 Localized edema; M51.360 Other intervertebral disc degeneration, lumbar region with discogenic back pain only; M24.28 Disorder of ligament, vertebrae; M47.896 Other spondylosis, lumbar region; M51.379 Other intervertebral disc degeneration, lumbosacral region without mention of lumbar back pain or lower extremity pain; M48.07 Spinal stenosis, lumbosacral region
CPT/HCPCS: 72148

== ENCOUNTER → 2025-02-05 14:02 | Outpatient (BNVA) | payer MEDICARE, SELFPAY | PROVIDERS: PCP Family Medicine; Visit Provider Orthopaedic Surgery | DX: Z01.818 Encounter for other preprocedural examination (principal); M48.061 Spinal stenosis, lumbar region without neurogenic claudication; R73.09 Other abnormal glucose | CPT/HCPCS: 36415; 80053; 81001; 83036; 85025; 99214 ==

== ENCOUNTER → 2025-03-06 10:21 | Outpatient (BNVA) | payer MEDICARE, SELFPAY | PROVIDERS: Absent Provider Internal Medicine; PCP Family Medicine; Visit Provider Internal Medicine Cardiovascular Disease | DX: I48.21 Permanent atrial fibrillation (principal); Z79.01 Long term (current) use of anticoagulants; I10 Essential (primary) hypertension; E78.5 Hyperlipidemia, unspecified; Z01.810 Encounter for preprocedural cardiovascular examination; Z86.711 Personal history of pulmonary embolism; Z86.718 Personal history of other venous thrombosis and embolism; Z87.891 Personal history of nicotine dependence; I48.91 Unspecified atrial fibrillation | CPT/HCPCS: 93005; 99214 ==

== ENCOUNTER 2025-03-13 05:38 | Day surgery (SDC) | payer MEDICARE, SELFPAY ==
[2025-03-13] VITALS (11 sets, daily range): BP systolic 116–153; BP diastolic 79–108; PULSE 75–101; RESP 12–19; TEMP 36.1–36.4; O2SAT 95–100; BMI 46.0
--- NOTE | 2025-03-13 06:29 | W.PM.OPSFHP ---
Same Day Surgery H&P Indication for Procedure/HPI DATE OF PROCEDURE: March 13, 2025 CHIEF COMPLAINT/INDICATIONFOR SURGICAL PROCEDURE: Back and leg pain PREOP DIAGNOSIS: Lumbar stenosis neurogenic claudication PLANNED PROCEDURE: Operation Date: 03/13/25 07:00 Proposed Procedures p Lumbar Spine Decompression(Not Applicable) - Hung Hebert, DO Medications/Allergies* Home Medications ?Medication ?Instructions ?Recorded ?Confirmed ?Type amlodipine 10 mg tablet 10 mg PO QPM 03/01/22 03/13/25 History hydrocodone 5 mg-acetaminophen 325 2 tab PO Q6H PRN Pain 03/01/22 03/13/25 History mg tablet metformin 1,000 mg tablet 1,000 mg PO BID 03/01/22 03/13/25 History pravastatin 20 mg tablet 20 mg PO QPM 03/01/22 03/13/25 History terbinafine HCl 1 % topical cream 1 applic topical BID PRN FUNGAL 02/16/23 03/13/25 History (Lamisil AT) doxepin 25 mg capsule 25 mg PO DAILY 03/06/25 03/13/25 History semaglutide 0.25 mg or 0.5 mg (2 0.25 mg SUBCUT .Q7D 03/12/25 03/13/25 History mg/3 mL) subcutaneous pen injector (Ozempic) Allergies/Adverse Reactions Allergy/AdvReac Type Severity Reaction Status Date / Time Alpha-Gal Allergy Unknown Verified 03/12/25 09:53 ([id number]-Tbrhe-8,3-Gala poison allyn extract Allergy ALGY-Rash Verified 03/12/25 09:40 poison oak extract Allergy ALGY-Rash Verified 03/12/25 09:40 poison sumac extract Allergy ALGY-Rash Verified 03/12/25 09:40 Pertinent History/Comorbid Conditions* Medical History (Updated 03/06/25 @ 11:39 by Oscar Shi MD) Chronic low back pain with sciatica Hyperlipidemia Hypertension Type 2 diabetes mellitus Morbid obesity Chronic pulmonary embolism 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 Family History (Updated 03/06/25 @ 10:35 by Danielle Dawson LPN) Diabetes Mother Denies family history of CAD (coronary artery disease) Cancer Hypertension Social History Smoking and tobacco/nicotine status: former use of tobacco/nicotine Quit status (tobacco/nicotine): has quit using Year quit tobacco: 2000 Former quit date comment: 1 ppd X 5 years Alcohol intake: current Alcohol intake frequency: few times a month Substance/Drug Use: never Pertinent Exam Findings alert, oriented x 3 and procedure specific exam findings Recommendations Risks and benefits of procedure reviewed Surgery/Procedure today Coding Level of Care Code Acute Code for g Fwthor
--- NOTE | 2025-03-13 06:41 | ANES.PREANE2 ---
Pre-Anesthetic Assessment Height/Weight: Height 1.83 m Temp Pulse Resp BP Pulse Ox O2 Del Method 97 F L 89 19 H 146/85 98 Room Air 03/13/25 06:08 03/13/25 06:08 03/13/25 06:08 03/13/25 06:08 03/13/25 06:08 03/13/25 06:09 Preop Diagnosis: Lumbar stenosis neurogenic claudication Operation Date: 03/13/25 07:00 Proposed Procedures p Lumbar Spine Decompression(Not Applicable) - Hung Hebert, DO Familial anesthetic complications: None Was Beta Jaky taken within 24 hours: N/A Was Clonidine taken within 24 hours: N/A Last intake: Intake Last Liquid Date 03/12/25 Last Liquid Time 21:00 Last Solid Date 03/12/25 Last Solid Time 21:00 Social No alcohol and No tobacco Exam alert, oriented x 3, clear to auscultation bilaterally and regular rate & rhythm Airway Mallampati: Class IV Dentition: chipped (poor dentition, multiple missing and chipped) Comments: Comments: full castorena, large tongue Pulmonary Hx DVT w/ PE CV/HEM Atrial Fibrillation and Hypertension Metabolic Diabetes Mellitus, Hyperlipidemia and Morbid Obesity Anesthetic Plan ASA status: 4 Anesthesia: General Other: alpha gal Risk of > 500 ml blood loss (7ml/kg in children): No Medications/Allergies Home Medications ?Medication ?Instructions ?Recorded ?Confirmed ?Last Taken ?Type amlodipine 10 mg tablet 10 mg PO QPM 03/01/22 03/13/25 03/12/25 History hydrocodone 5 mg-acetaminophen 325 2 tab PO Q6H PRN Pain 03/01/22 03/13/25 03/12/25 History mg tablet metformin 1,000 mg tablet 1,000 mg PO BID 03/01/22 03/13/25 03/12/25 History pravastatin 20 mg tablet 20 mg PO QPM 03/01/22 03/13/25 03/12/25 History terbinafine HCl 1 % topical cream 1 applic topical BID PRN FUNGAL 02/16/23 03/13/25 03/12/25 History (Lamisil AT) apixaban 5 mg tablet (Eliquis) 5 mg PO BID@0900,2100 #60 tabs 02/17/23 03/13/25 03/10/25 Rx diltiazem HCl 180 mg 180 mg PO DAILY #30 caps 02/17/23 03/13/25 03/12/25 Rx capsule,extended release 24 hr, controlled (DILT-XR) duloxetine 30 mg capsule,delayed 30 mg PO DAILY #30 caps 02/17/23 03/13/25 03/12/25 Rx release (Cymbalta) doxepin 25 mg capsule 25 mg PO DAILY 03/06/25 03/13/25 03/12/25 History semaglutide 0.25 mg or 0.5 mg (2 0.25 mg SUBCUT .Q7D 03/12/25 03/13/25 03/01/25 History mg/3 mL) subcutaneous pen injector ([employer]) Allergies Allergy/AdvReac Type Severity Reaction Status Date / Time Alpha-Gal Allergy Unknown Verified 03/12/25 09:53 (Iwgxnpxiz-Wroqq-7,3-Gala poison allyn extract Allergy ALGY-Rash Verified 03/12/25 09:40 poison oak extract Allergy ALGY-Rash Verified 03/12/25 09:40 poison sumac extract Allergy ALGY-Rash Verified 03/12/25 09:40 [facility] Anesthesia Medical History (Updated 03/06/25 @ 11:39 by Oscar Shi MD) Chronic low back pain with sciatica Hyperlipidemia Hypertension Type 2 diabetes mellitus Morbid obesity Chronic pulmonary embolism 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
[2025-03-13] MEDS: ceFAZolin 3,000 MG in sodium chloride 0.9% (plus) 100 ML 200 MG IV (07:03)
[2025-03-13] MEDS: lidocaine-epi 1% 20 mL INJ INJECTION (07:35)
--- NOTE | 2025-03-13 08:17 | XR_ITS ---
WS: [id number] XR lumbar spine 2-3V* [id number] REASON FOR EXAM: OR PICS FINDINGS: Surgical instrument overlies the right L3-L4 disc space. XR/XR lumbar spine 2-3V* [id number] IMPRESSION: Lumbar level localization and surgery as above.
--- NOTE | 2025-03-13 08:43 | PM.OP ---
Operative Report Date of procedure: March 13, 2025 Pre-op diagnosis: Lumbar stenosis with neurogenic claudication Post-op diagnosis: same Procedure done: 1. L3/4 laminectomy with partial facetectomy 2. L4/5 laminectomy with partial facetectomy Surgeon: Hung Hebert DO Estimated blood loss (mL): 20 Procedure: 1. L3/4 laminectomy with partial facetectomy 2. L4/5 laminectomy with partial facetectomy Patient is brought to the operative suite. After undergoing anesthesia they are placed in the prone position. All areas of impingement are well padded. Patient is then prepped and draped in the normal sterile fashion. A skin incision is made over the L3/4 level. This is confirmed under c-arm guidance. A series of dilators are passed and the tubular retractor is docked on the L3 lamina. A bovie is used to clear the soft tissue off the lamina and the L 3/4 facet joint. A high speed devin is then used to perform the laminectomy and take down the medial aspect of the L 3/4 facet joint. A kerrison rongeure was then used to take down the remaining lamina and smooth the edge of the laminectomy up to the point where the ligamentum flavum attaches. Attention was then brought to the medial aspect of the facet joint. The remaining medial aspect of the superior and inferior aspect of the facet joint were taken down with the kerrison from the pedicle of L3 to L 4. The facet joint had significant hypertrophy. Attention was then brought to the Ligamentum Flavum. The ligament was taken down from the lamina of L3 to L4 and out medially to the remaining facet joint. The ligament was thick. The dura was then exposed. The dura was in good repair. The L3 nerve was then traced with a curette out the L3/4 foramen and found to be adequately decompressed. The L4 nerve was traced with a curette around the L4 pedicle. The lateral recess was opened with a kerrison helping to further decompress the L4 nerve. Wound is then irrigated copiously with saline and surgiflo is used to stop any bleeding. The tubular retractor is removed and the A skin incision is made over the L4/5 level. This is confirmed under c-arm guidance. A series of dilators are passed and the tubular retractor is docked on the L4 lamina. A bovie is used to clear the soft tissue off the lamina and the L 4/5 facet joint. A high speed devin is then used to perform the laminectomy and take down the medial aspect of the L 4/5 facet joint. A kerrison rongeure was then used to take down the remaining lamina and smooth the edge of the laminectomy up to the point where the ligamentum flavum attaches. Attention was then brought to the medial aspect of the facet joint. The remaining medial aspect of the superior and inferior aspect of the facet joint were taken down with the kerrison from the pedicle of L4 to L 5. The facet joint had significant hypertrophy. Attention was then brought to the Ligamentum Flavum. The ligament was taken down from the lamina of L4 to L5 and out medially to the remaining facet joint. The ligament was thick. The dura was then exposed. The dura was in good repair. The L4 nerve was then traced with a curette out the L4/5 foramen and found to be adequately decompressed. The L5 nerve was traced with a curette around the L5 pedicle. The lateral recess was opened with a kerrison helping to further decompress the L5 nerve. Wound is then irrigated copiously with saline and surgiflo is used to stop any bleeding. The tubular retractor is removed and the wound is closed with vicryl and monocryl suture. Steri strips were applied. A sterile dressing is then placed. Patient was then placed in the supine position and transferred to the PACU in stable condition.
[2025-03-13] MEDS: HYDROcodone-acetaminophen 5-325 mg Tablet 1 TAB PO (09:34)
--- NOTE | 2025-03-13 09:55 | ANE.PACU2 ---
Inpatient post-anesthesia follow up: Airway intact: Yes Vital signs: Temperature 97 F Pulse Rate 97 Respiratory Rate 18 Blood Pressure 153/99 Pulse Oximetry 97 Oxygen Delivery Me thod Room Air Oxygen Flow Rate 6 Fraction of Inspir ed Oxygen Hydration adequate: Yes Nausea and vomiting: No Pain level: 1 Mental status: Baseline
== END 2025-03-13 09:55 | disposition home or self-care (01) ==
PROVIDERS: PCP Family Medicine; Visit Provider Orthopaedic Surgery
PROC: (CPT 63005; principal; 2025-03-13 07:00)
DX: M48.062 Spinal stenosis, lumbar region with neurogenic claudication (principal); I48.91 Unspecified atrial fibrillation; I10 Essential (primary) hypertension; E11.9 Type 2 diabetes mellitus without complications; E78.5 Hyperlipidemia, unspecified; E66.01 Morbid (severe) obesity due to excess calories; Z68.42 Body mass index [BMI] 45.0-49.9, adult; Z79.891 Long term (current) use of opiate analgesic; Z79.84 Long term (current) use of oral hypoglycemic drugs; Z91.014 Allergy to mammalian meats; Z86.711 Personal history of pulmonary embolism; Z87.891 Personal history of nicotine dependence
CPT/HCPCS: 63047; 63048; 36416; 72100; 76000; 82962; J0690; J2250; J3010; J7030; J9999

== ENCOUNTER → 2025-04-07 15:07 | Outpatient (BNVA) | payer MEDICARE, SELFPAY | PROVIDERS: PCP Family Medicine; Visit Provider Orthopaedic Surgery | DX: Z98.890 Other specified postprocedural states (principal) | CPT/HCPCS: 99024 ==

== ENCOUNTER 2025-04-20 09:48 | Outpatient (CLI) | payer MEDICARE, SELFPAY ==
--- NOTE | 2025-04-20 10:00 | CT_ITS ---
WS: [id number] CT LUMBAR SPINE, noncontrast. HISTORY: Lumbar fx TECHNIQUE: Contiguous 2.0 mm axial imaging are performed. Sagittal and coronal reformats are submitted and reviewed. All CT scans at [facility] use at least one of these dose optimization techniques: automated exposure control; mA and/or kV adjustment per patient size (includes targeted exams where dose is matched to clinical indication); or iterative reconstruction. IV contrast: None DLP: 1810.83 mGy.cm COMPARISON: MRI 01/29/2025, radiograph 03/13/2025 Very slight straightening and curvature of the lumbar spine. Endplate osteophytes. Most significant osteophytes are at L4-5. No acute lumbar spine fracture. L1-2: Mild osteophytic ridging. No significant stenosis. L2-3: Mild osteophytic ridging. No significant stenosis. There are very subtle lucencies extending through the L3 transverse processes which could be artifacts or nondisplaced and age-indeterminate fractures. L3-4: Diffuse disc bulging. Shallow LEFT foraminal disc protrusion. Facet joint arthritis. RIGHT hemilaminectomy defect. L4-5: Annular disc bulging and large osteophytes. Disc osteophyte complex encroaching upon the ventral thecal sac greatest on the RIGHT. Large right-sided laminectomy defect. Disc osteophyte contacts the RIGHT lateral thecal sac and the traversing L5 nerve root. Mild to moderate central and RIGHT foraminal stenosis. Mild LEFT foraminal stenosis. L5-S1: RIGHT hemilaminectomy defect. Severe LEFT foraminal stenosis and moderate RIGHT foraminal stenosis. Large osteophytes at L5-S1 with a bony bridge extending between L5 and S1. Mild atherosclerosis aorta. Postoperative changes noted in the posterior paraspinal soft tissues appear appropriate by CT. Degenerative air in the SI joints. CT/CT lumbar spine wo con* [id number] IMPRESSION: 1. Since the prior MRI of 01/29/2025 patient has undergone RIGHT hemilaminectom y defects from L3-4 to L5-S1. 2. No acute fractures identified within the vertebral bodies. 3. There are very subtle lucencies within the L3 transverse processes which co uld be age-indeterminate fractures. 4. Shallow LEFT foraminal disc protrusion at L3-4 is unchanged. 5. Disc osteophyte complex encroaching upon the ventral thecal sac at L4-5 as before. Disc osteophyte contacts the RIGHT lateral thecal sac and the traversin g L5 nerve root. Mild to moderate central and RIGHT foraminal stenosis. Mild LE FT foraminal stenosis at L4-5. 6. Severe LEFT foraminal stenosis and moderate RIGHT foraminal stenosis predom inantly due to osteophytosis. There is a large bridging osteophyte on the LEFT extending between L5 and S1.
== END 2025-04-20 09:49 | disposition home or self-care (01) ==
LOC: RAD 09:50
PROVIDERS: PCP Family Medicine; Visit Provider Orthopaedic Surgery
DX: M25.78 Osteophyte, vertebrae (principal); R93.7 Abnormal findings on diagnostic imaging of other parts of musculoskeletal system; M51.26 Other intervertebral disc displacement, lumbar region; M48.061 Spinal stenosis, lumbar region without neurogenic claudication; M51.16 Intervertebral disc disorders with radiculopathy, lumbar region; M43.26 Fusion of spine, lumbar region; I70.0 Atherosclerosis of aorta; Z98.890 Other specified postprocedural states; M51.369 Other intervertebral disc degeneration, lumbar region without mention of lumbar back pain or lower extremity pain; M47.896 Other spondylosis, lumbar region; M96.89 Other intraoperative and postprocedural complications and disorders of the musculoskeletal system; M48.07 Spinal stenosis, lumbosacral region; M46.1 Sacroiliitis, not elsewhere classified
CPT/HCPCS: 72131